=== PATIENT | male | born 1990 | race Caucasian/White ===

== ENCOUNTER 2020-04-15 03:26 | Emergency (ER) | payer BC, SELFPAY ==
[2020-04-15] MEDS ORDERED: Ketorolac Tromethamine 30 MG/ML VIAL ONE (03:46)
[2020-04-15] MEDS ORDERED: Metoclopramide HCl 10 MG/2 ML VIAL ONE (03:46)
[2020-04-15] MEDS ORDERED: diphenhydrAMINE 50 MG/ML VIAL ONE (03:46)
[2020-04-15 04:35] LABS: Anion Gap 16 mmol/L (10-20); BUN (Urea Nitrogen) 12 mg/dL (8.9-20.6); Calc. Creatinine Clearance 0 mL/min (70-130); Calcium 9.4 mg/dL (7.8-10.44); Carbon Dioxide 22 mmol/L (22-29); Chloride 106 mmol/L (98-107); Estimated GFR-MDRD Greater than 90; Glucose 147 mg/dL (70-105); Potassium 3.7 mmol/L (3.5-5.1); Sodium 140 mmol/L (136-145)
== END 2020-04-15 06:08 | disposition home or self-care (01) ==
LOC: ERS 03:26
DX: R51 Headache (principal); R11.2 Nausea with vomiting, unspecified; R20.2 Paresthesia of skin; R25.2 Cramp and spasm; F41.9 Anxiety disorder, unspecified; F17.210 Nicotine dependence, cigarettes, uncomplicated
CPT/HCPCS: 80048; 96361; 96374; 96375; J1200; J1885; J2765